=== PATIENT | male | born 1970 | race Caucasian/White ===

== ENCOUNTER 2021-06-04 10:09 | Emergency (ER) | payer BC ==
[~2021-06-04] VITALS: Ht 175.3 cm; Wt 104.5 kg
[~2021-06-04 10:09] MED LIST: DILT120C62 PO; LISI30TA4 PO; METO100T14 PO
[2021-06-04 10:23] VITALS: BP 165/91
[2021-06-04] MEDS ORDERED: HYDR-3972 PO (17:54)
== END 2021-06-04 18:17 | disposition home or self-care (01) ==
LOC: ER 10:09
DX: M79.605 Pain in left leg (principal); M79.672 Pain in left foot; M10.9 Gout, unspecified; Z72.89 Other problems related to lifestyle; Z88.8 Allergy status to other drugs, medicaments and biological substances; Z79.899 Other long term (current) drug therapy
CPT/HCPCS: 73610; 73630; 93971; 99284

== ENCOUNTER 2021-10-28 10:43 | Emergency (ER) | payer BC ==
[~2021-10-28] VITALS: Ht 175.3 cm; Wt 109.1 kg
[2021-10-28 10:58] VITALS: BP 147/94
[2021-10-28] MEDS ORDERED: CEPH250T PO (11:27)
== END 2021-10-28 11:45 | disposition home or self-care (01) ==
LOC: ER 10:44
DX: H66.92 Otitis media, unspecified, left ear (principal); M10.9 Gout, unspecified; Z72.89 Other problems related to lifestyle; Z98.890 Other specified postprocedural states; Z79.899 Other long term (current) drug therapy; Z88.5 Allergy status to narcotic agent
CPT/HCPCS: 99283

== ENCOUNTER → 2023-06-11 | Outpatient (CLI) | payer BC ==
[~2023-06-11] MED LIST changes: +ALLO100T PO; +ASPI-1475 PO; +ATOR20TA66 PO; +CHLO25TA10 PO; +DILT120C77 PO; +INDO50CA96 PO; +LISI40TA13 PO; +METF-900 PO
[2023-06-11 13:13] LABS: BASOPHILS # (AUTO) 0.1 X10'3 (0-0.2); BASOPHILS % (AUTO) 1.1 % (0-1); EOSINOPHILS # (AUTO) 0.3 X10'3 (0-0.9); EOSINOPHILS % (AUTO) 3.1 % (0-6); HEMATOCRIT 44.4 % (42.0-52.0); HEMOGLOBIN 15.3 g/dl (14.0-17.9); LYMPHOCYTES # (AUTO) 1.9 X10'3 (1.1-4.8); MEAN CORPUSCULAR HEMOGLOBIN 29.7 PG (27.0-31.0); MEAN CORPUSCULAR HGB CONC 34.5 g/dL (33.0-36.5); MEAN CORPUSCULAR VOLUME 85.9 FL (78-98); MEAN PLATELET VOLUME 8.5 FL (7.4-10.4); MONOCYTES # (AUTO) 0.7 X10'3 (0-0.9); MONOCYTES % (AUTO) 7.9 % (2-12); NEUTROPHILS # (AUTO) 5.6 X10'3 (1.8-7.7); NEUTROPHILS % (AUTO) 65.9 % (42-75); PLATELET COUNT 184 X10'3 (140-440); RED BLOOD COUNT 5.17 X10'6 (4.70-6.10); RED CELL DISTRIBUTION WIDTH 13.5 % (11.5-14.5); WHITE BLOOD COUNT 8.4 X10'3 (4.5-11.0)
[2023-06-11 13:38] LABS: ALANINE AMINOTRANSFERASE 40 U/L (12-78); ALBUMIN/GLOBULIN RATIO 1.2 (1.1-1.5); ALKALINE PHOSPHATASE 69 IU/L (46-116); ANION GAP 7 (8-16); ASPARTATE AMINO TRANSFERASE 28 U/L (10-37); BILIRUBIN,TOTAL 0.8 MG/DL (0.1-1.0); BLOOD UREA NITROGEN 28 MG/DL (7-18); BUN/CREATININE RATIO 23.1 (10.0-20.0); CALCIUM 9.4 MG/DL (8.5-10.1); CHLORIDE 102 MMOL/L (99-107); CHOL/HDL RATIO 3.8 (0.00-4.99); CHOLESTEROL 147 MG/DL (0-200); CREATININE 1.21 MG/DL (0.60-1.10); GLUCOSE 145 MG/DL (70-104); HDL CHOLESTEROL 39 MG/DL (35-60); LDL CHOLESTEROL 85 MG/DL (50-100); POTASSIUM 4.1 MMOL/L (3.5-5.1); SODIUM 139 MMOL/L (135-145); THYROID STIMULATING HORMONE 1.77 ulU/ml (0.34-4.50); TOTAL CARBON DIOXIDE 30.2 MMOL/L (24-32); TOTAL PROTEIN 7.3 G/DL (6.4-8.2); TRIGLYCERIDES 149 MG/DL (20-135); URIC ACID 7.1 MG/DL (3.5-7.2); eGFR 62 ML/MIN
== END | disposition home or self-care (01) ==
LOC: LAB 12:33
DX: I10 Essential (primary) hypertension (principal); M79.622 Pain in left upper arm; Z87.39 Personal history of other diseases of the musculoskeletal system and connective tissue
CPT/HCPCS: 36415; 80053; 80061; 84439; 84443; 84484; 84550; 85025